=== PATIENT | female | born 1960 | race Caucasian/White ===

== ENCOUNTER 2019-08-30 11:15 | Emergency (ER) | payer OTHER, SELFPAY ==
[2019-08-30 12:15] LABS: Absolute Lymphocytes (CBC) 1.3 K/uL (0.7-4.9); Basophils % 0.3 % (0-1.3); Hematocrit 40.1 % (36.0-45.0); Lymphocytes % 45.4 % (15.3-44.8); MPV 8.2 fL (7.6-11.3); RBC Red Blood Cell Count 4.36 M/uL (3.86-4.86)
[2019-08-30 12:17] LABS: Protime INR 1.02
[2019-08-30 12:29] LABS: Potassium 3.8 mmol/L (3.5-5.1)
[2019-08-30 12:54] LABS: Urine Blood 1+ (NEG); Urine Glucose NEGATIVE (NEG); Urine Protein NEGATIVE (NEG); Urine pH 5.5 (5.0-7.0)
--- NOTE | 2019-08-30 13:40 | ER ---
Nurse's Notes [facility] Name: Vicki Mckeon Age: 58 yrs Sex: Female : 1960 Arrival Date: 08/30/2019 Time: 11:17 Bed 7 Private MD: Yomi Lance H; Veselka, James Diagnosis: Diarrhea, unspecified Presentation: 08/30 11:34 Presenting complaint: Patient states: diarrhea x 4 days, black stools x 2 days. Sent by ss PCP after a + guaiac in the office today. Transition of care: patient was not received from another setting of care. Onset of symptoms was August 27, 2019. Risk Assessment: Do you want to hurt yourself or someone else? Patient reports no desire to harm self or others. Initial Sepsis Screen: Does the patient meet any 2 criteria? No. Patient's initial sepsis screen is negative. Does the patient have a suspected source of infection? No. Patient's initial sepsis screen is negative. Care prior to arrival: None. 11:34 Method Of Arrival: Ambulatory ss 11:34 Acuity: PRICILA 3 ss Historical: - Allergies: 11:35 No Known Allergies; ss - Immunization history:: Adult Immunizations up to date. - Social history:: Smoking status: Patient/guardian denies using tobacco. - Ebola Screening: : Patient denies exposure to infectious person Patient denies travel to an Ebola-affected area in the 21 days before illness onset. Screenin:06 Abuse screen: Denies threats or abuse. Denies injuries from another. Nutritional hb screening: No deficits noted. Tuberculosis screening: No symptoms or risk factors identified. Fall Risk None identified. Assessment: 11:58 General: Appears in no apparent distress. Behavior is calm, cooperative. Pain: Denies hb pain. Neuro: Level of Consciousness is awake, alert, obeys commands, Oriented to person, place, time, situation. Cardiovascular: Capillary refill < 3 seconds Patient's skin is warm and dry. Respiratory: Airway is patent Respiratory effort is even, unlabored, Respiratory pattern is regular, symmetrical. GI: Reports diarrhea, bloody stool. : No signs and/or symptoms were reported regarding the genitourinary system. EENT: No signs and/or symptoms were reported regarding the EENT system. Derm: Skin is pink, warm \T\ dry. Musculoskeletal: No signs and/or symptoms reported regarding the musculoskeletal system. 12:45 Reassessment: Patient appears in no apparent distress at this time. Patient and/or hb family updated on plan of care and expected duration. Pain level reassessed. Patient is alert, oriented x 3, equal unlabored respirations, skin warm/dry/pink. 13:45 Reassessment: Patient appears in no apparent distress at this time. Patient and/or hb family updated on plan of care and expected duration. Pain level reassessed. Patient is alert, oriented x 3, equal unlabored respirations, skin warm/dry/pink. Vital Signs: 11:35 Resp 16; Pulse Ox 99% on R/A; Weight 73.03 kg; Height 5 ft. 2 in. (157.48 cm); Pain ss 0/10; 11:35 BP 137 / 47; Pulse 86; ss 11:40 Temp 98.4(TE); ss 12:45 BP 127 / 71; Pulse 82; Resp 15; Pulse Ox 100% on R/A; hb 13:45 BP 130 / 76; Pulse 80; Resp 14; Pulse Ox 100% on R/A; hb 11:35 Body Mass Index 29.45 (73.03 kg, 157.48 cm) ss ED Course: 11:17 Patient arrived in ED. as 11:17 Yomi Lance MD is Private Physician. as 11:17 Rashaad Healy MD is Private Physician. as 11:24 Bryan Tabor MD is Attending Physician. gs 11:35 Triage completed. ss 11:36 Arm band placed on left wrist. ss 12:06 Patient has correct armband on for positive identification. Bed in low position. Call hb light in reach. Side rails up X 1. 12:06 Inserted saline lock: 20 gauge in right antecubital area, using aseptic technique. ph Blood collected. 12:16 Ny Payan, NIA is Primary Nurse. hb 12:22 Urine collected: clean catch specimen, clear, douglas colored. jb1 13:38 Yomi Lance MD is Referral Physician. gs 13:53 No provider procedures requiring assistance completed. IV discontinued, intact, hb bleeding controlled, No redness/swelling at site. Pressure dressing applied. Administered Medications: No medications were administered Outcome: 13:39 Discharge ordered by MD. gs 13:53 Discharged to home ambulatory. hb 13:53 Condition: stable 13:53 Discharge instructions given to patient, Instructed on discharge instructions, follow up and referral plans. medication usage, Demonstrated understanding of instructions, follow-up care, medications. 13:54 Patient left the ED. Signatures: Chai Mccarthy jb1 Sariah Post Shelby, RN RN Lois Hurtado RN RN Ny Payan RN RN Bryan Tabor MD MD
--- NOTE | 2019-08-30 13:40 | EDPHYS ---
Physician Documentation [facility] Name: Vicki Mckeon Age: 58 yrs Sex: Female : 1960 Arrival Date: 08/30/2019 Time: 11:17 Bed 7 Private MD: Yomi Lance H; Veselka, James ED Physician Bryan Tabor HPI: 08/30 13:34 This 58 yrs old Female presents to ER via Ambulatory with complaints of gs Black/Tarry Stools. 13:34 The patient presents to the emergency department with diarrhea. Onset: The gs symptoms/episode began/occurred 4 day(s) ago. Possible causes: unknown. The symptoms are aggravated by nothing. The symptoms are alleviated by nothing. Associated signs and symptoms: Pertinent negatives: abdominal pain, fever. Severity of symptoms: At their worst the symptoms were moderate in the emergency department the symptoms are unchanged. The patient has not experienced similar symptoms in the past. The patient has been recently seen by a physician: the patient's primary care provider. Historical: - Allergies: 11:35 No Known Allergies; ss - Immunization history:: Adult Immunizations up to date. - Social history:: Smoking status: Patient/guardian denies using tobacco. - Ebola Screening: : Patient denies exposure to infectious person Patient denies travel to an Ebola-affected area in the 21 days before illness onset. ROS: 13:34 All other systems are negative. gs Exam: 13:34 Head/Face: Normocephalic, atraumatic. Eyes: Pupils equal round and reactive to light, gs extra-ocular motions intact. Lids and lashes normal. Conjunctiva and sclera are non-icteric and not injected. Cornea within normal limits. Periorbital areas with no swelling, redness, or edema. ENT: Nares patent. No nasal discharge, no septal abnormalities noted. Tympanic membranes are normal and external auditory canals are clear. Oropharynx with no redness, swelling, or masses, exudates, or evidence of obstruction, uvula midline. Mucous membranes moist. Neck: Trachea midline, no thyromegaly or masses palpated, and no cervical lymphadenopathy. Supple, full range of motion without nuchal rigidity, or vertebral point tenderness. No Meningismus. Chest/axilla: Normal chest wall appearance and motion. Nontender with no deformity. No lesions are appreciated. Cardiovascular: Regular rate and rhythm with a normal S1 and S2. No gallops, murmurs, or rubs. Normal PMI, no JVD. No pulse deficits. Respiratory: Lungs have equal breath sounds bilaterally, clear to auscultation and percussion. No rales, rhonchi or wheezes noted. No increased work of breathing, no retractions or nasal flaring. Abdomen/GI: Soft, non-tender, with normal bowel sounds. No distension or tympany. No guarding or rebound. No evidence of tenderness throughout. Back: No spinal tenderness. No costovertebral tenderness. Full range of motion. Skin: Warm, dry with normal turgor. Normal color with no rashes, no lesions, and no evidence of cellulitis. MS/ Extremity: Pulses equal, no cyanosis. Neurovascular intact. Full, normal range of motion. Neuro: Awake and alert, GCS 15, oriented to person, place, time, and situation. Cranial nerves II-XII grossly intact. Motor strength 5/5 in all extremities. Sensory grossly intact. Cerebellar exam normal. Normal gait. 13:34 Constitutional: The patient appears alert, awake. Vital Signs: 11:35 Resp 16; Pulse Ox 99% on R/A; Weight 73.03 kg; Height 5 ft. 2 in. (157.48 cm); Pain ss 0/10; 11:35 BP 137 / 47; Pulse 86; ss 11:40 Temp 98.4(TE); ss 12:45 BP 127 / 71; Pulse 82; Resp 15; Pulse Ox 100% on R/A; hb 13:45 BP 130 / 76; Pulse 80; Resp 14; Pulse Ox 100% on R/A; hb 11:35 Body Mass Index 29.45 (73.03 kg, 157.48 cm) ss MDM: 11:37 Patient medically screened. gs 13:34 Differential diagnosis: viral gastroenteritis, gastroenteritis. Data reviewed: vital gs signs, nurses notes, lab test result(s). Counseling: I had a detailed discussion with the patient and/or guardian regarding: the historical points, exam findings, and any diagnostic results supporting the discharge/admit diagnosis, the need for outpatient follow up. Response to treatment: the patient's symptoms have mildly improved after treatment, and as a result, I will discharge patient. ED course: stable h/h will wait for culture results, pt understands and approves of plan. 08/30 11:39 Order name: CBC with Diff kdr 08/30 11:39 Order name: Basic Metabolic Panel; Complete Time: 13:27 kdr 08/30 11:40 Order name: PT-INR; Complete Time: 13:27 kdr 08/30 12:22 Order name: Urine Dipstick--Ancillary (enter results); Complete Time: 13:27 eb Administered Medications: No medications were administered Disposition: 08/30/19 13:39 Discharged to Home. Impression: Diarrhea, unspecified. - Condition is Stable. - Discharge Instructions: Diarrhea, Adult. - Medication Reconciliation Form, Thank You Letter, Antibiotic Education, Prescription Opioid Use form. - Follow up: Yomi Lance MD; When: 1 - 2 days; Reason: Re-evaluation by your physician. Signatures: Dispatcher [employer] EDMS Mack Hdez MD MD [facility] Brina Clark RN RN Ny Payan RN RN Bryan Tabor MD MD gs Corrections: (The following items were deleted from the chart) 13:54 13:39 08/30/2019 13:39 Discharged to Home. Impression: Diarrhea, unspecified. Condition hb is Stable. Forms are Medication Reconciliation Form, Thank You Letter, Antibiotic Education, Prescription Opioid Use. Follow up: Yomi Lance; When: 1 - 2 days; Reason: Re-evaluation by your physician. gs
[2019-08-30 14:10] VITALS: TEMP 98.4
[2019-08-30 14:12] VITALS: O2SAT 100
[2019-08-30 14:13] VITALS: BP 130/76
[2019-08-30 15:21] LABS: Blood Morphology Comment NOT SEEN (NOT SEEN); Platelet Estimate ADEQ
== END 2019-08-30 13:54 | disposition home or self-care (01) ==
LOC: ER 11:15
DX: R19.7 Diarrhea, unspecified (principal)
CPT/HCPCS: 36415; 80048; 81003; 85025; 85610; 99283